=== PATIENT | female | born 1950 | race Hispanic/Latino ===

== ENCOUNTER 2017-02-23 06:12 | Emergency (ER) | payer BC, MEDICARE ==
[2017-02-23 06:18] VITALS: BMI 29.1
[2017-02-23 06:32] VITALS: RESP 19
--- NOTE | 2017-02-23 06:39 | ED PDOC ---
Arrival/HPI - General Chief Complaint: Chest Pain Time Seen by Provider: 02/23/17 06:19 Historian: Patient - History of Present Illness Narrative History of Present Illness (Text): 02/23/17 06:35 Pt is a 66 yo female who for last 2 nights has been awakened from sleep with SSCP.Tonights episode started at 0300 and has been continuous.Described as a heavinessNot associated with cough ,Sob,fever.No posirtional component though hurts to palpate the area.No recent trauma.No accompanying symptoms.Pos risk factors include hypertension,Hyperlipidemia.Pt is not a smoker,no diabetes or FH.Pain is not exertional 02/23/17 06:39 Symptom Course: Unchanged Quality: Pressure Activities at Onset: Rest Past Medical History - Provider Review Nursing Documentation Reviewed: Yes - Travel History Have you recently traveled outside [place] w/in the past 3 mons?: No - Past History Past History: Non-Contributing - Infectious Disease Hx of Infectious Diseases: None - Tetanus Immunization Tetanus Immunization: Unknown - Cardiac Hx Hypertension: Yes Hx Pacemaker: No - Pulmonary Hx Respiratory Disorders: No - Neurological Hx Neurological Disorder: No - HEENT Hx HEENT Disorder: Yes Other/Comment: wears glasses - Renal Hx Kidney Stones: Yes - Endocrine/Metabolic Hx Endocrine Disorders: No Hx Diabetes Mellitus Type 2: Yes (borderline) - Hematological/Oncological Hx Blood Disorders: No - Integumentary Hx Dermatological Disorder: No - Musculoskeletal/Rheumatological Hx Musculoskeletal Disorders: No Hx Falls: No - Gastrointestinal Hx Gastrointestinal Disorders: Yes Hx Diverticulitis: Yes Hx Gastroesophageal Reflux: Yes Other/Comment: Gastritis, irritable Bowel syndrome, Lactose intolerant - Genitourinary/Gynecological Hx Genitourinary Disorders: Yes Other/Comment: kidney stones - Psychiatric Hx Psychophysiologic Disorder: No Hx Emotional Abuse: No Hx Physical Abuse: No Hx Substance Use: No - Surgical History Hx Hysterectomy: Yes Hx Orthopedic Surgery: Yes (left meniscus) Other/Comment: Vericose veins sx/kidney stones - Anesthesia Hx Anesthesia Reactions: No Hx Malignant Hyperthermia: No - Suicidal Assessment Feels Threatened In Home Enviroment: No Family/Social History Family/Social History: No Known Family HX Smoking Status: Never Smoked Hx Alcohol Use: Yes (socially) Frequency of alcohol use: Socially Hx Substance Use: No Hx Substance Use Treatment: No Allergies/Home Meds Allergies/Adverse Reactions: Allergies codeine Allergy (Verified 02/23/17 06:24) ANAPHYLAXIS hyperactivity diazepam [From Valium] Allergy (Verified 02/23/17 06:24) ANAPHYLAXIS hyperactivity diphenhydramine [From Benadryl] Allergy (Verified 02/23/17 06:20) RASH Sulfa (Sulfonamide Antibiotics) Allergy (Verified 02/23/17 06:24) RASH Home Medications: Home Meds Medication Instructions Recorded Confirmed Atorvastatin Calcium [Lipitor] 20 mg PO DAILY 09/11/12 02/23/17 Losartan/Hydrochlorothiazide 1 tab PO DAILY 09/11/12 02/23/17 [Hyzaar 100-12.5 Tablet] Dexlansoprazole [Dexilant] 60 mg PO DAILY 03/29/14 02/23/17 Cholecalciferol [Vitamin D 1000 IU] 1,000 iu PO DAILY 04/02/14 02/23/17 Aspirin [Aspirin Chewable] 81 mg PO DAILY 02/23/17 02/23/17 Conjugated Estrogens [Premarin] 0.3 mg PO DAILY 02/23/17 02/23/17 Review of Systems - Patients Enrolled in [employer] [X]: A conversation was conducted with the primary medical doctor. - Review of Systems Constitutional: Normal Eyes: Normal ENT: Normal Respiratory: Normal Cardiovascular: Normal Gastrointestinal: Normal Genitourinary Female: Normal Physical Exam Vital Signs Pulse Resp BP Pulse Ox 02/23/17 06:28 75 19 149/67 97 Blood Pressure: Normal Pulse: Regular Respiratory Rate: Normal Appearance: Positive for: Well-Appearing Pain Distress: None Mental Status: Positive for: Alert and Oriented X 3 - Systems Exam Pupils: Present: PERRL Conjunctiva: Present: Normal Ears: Present: Normal Neck: Present: Normal Range of Motion Respiratory/Chest: Present: Clear to Auscultation, Good Air Exchange Cardiovascular: Present: Regular Rate and Rhythm, Other (CW is tender to palp, reproduces the sx) Abdomen: Present: Normal Bowel Sounds. No: Tenderness, Distention, Peritoneal Signs Back: Present: Normal Inspection. No: CVA Tenderness Upper Extremity: Present: Normal Inspection. No: Cyanosis, Edema Lower Extremity: Present: Normal Inspection. No: Edema Medical Decision Making ED Course and Treatment: 02/23/17 06:56 Pt with atypical reproducible chest pain which was continuous since 0300.Likely musculoskeletal in origin - RAD Interpretation Radiology Orders: 02/23/17 06:33 CHEST PORTABLE [RAD] Stat - EKG Interpretation EKG Interpretation (Text): 02/23/17 07:01 ekg demonstrates nsr,no acute STTW changes,no ectopy Interpreted by ED Physician: Yes Type: 12 lead EKG Comparison: No previous EKG avail. - Transfer of Care Patient signed out to Dr:: byron Disposition/Present on Arrival - Present on Arrival History of DVT/PE: No History of Uncontrolled Diabetes: No Urinary Catheter: No History of Decub. Ulcer: No History Surgical Site Infection Following: None - Disposition Forms: [employer] (Thai)
[2017-02-23 07:01] LABS: ALB/GLOB RATIO 1.5 (1.1-1.8); ALKALINE PHOSPHATASE 71 U/L (38-126); ALT/SGPT 31 U/L (7-56); AST/SGOT 31 U/L (14-36); BILIRUBIN,TOTAL 0.6 mg/dL (0.2-1.3); BLOOD UREA NITROGEN 19 mg/dL (7-21); CARBON DIOXIDE 26 mmol/L (21-33); CHLORIDE 104 mmol/L (98-107); GFR AFRICAN-AMERICAN > 60; GLUCOSE,RANDOM 187 mg/dL (70-110); MAGNESIUM 1.6 mg/dL (1.7-2.2); POTASSIUM 3.7 mmol/L (3.6-5.0); SODIUM 140 mmol/L (132-148); TOTAL PROTEIN 6.9 g/dL (5.8-8.3)
[2017-02-23 07:08] LABS: BASO # 0.03 K/mm3 (0.0-2.0); BASO % 0.4 % (0.0-3.0); EOS # 0.2 (0.0-0.7); EOS % 3.1 % (1.5-5.0); GRAN # 4.84 (1.4-6.5); GRAN % 68.4 % (50.0-68.0); HEMATOCRIT 36.3 % (36.0-48.0); LYMPH # 1.5 (1.2-3.4); LYMPH % 21.3 % (22.0-35.0); MEAN CELL VOLUME 90.3 fl (80.0-105.0); MEAN CORPUSCULAR HEMOGLOBIN 30.3 pg (25.0-35.0); MEAN CORPUSCULAR HGB CONC 33.6 g/dl (31.0-37.0); MEAN PLATELET VOLUME 9.5 fl (7.0-11.0); MONO # 0.5 (0.1-0.6); MONO % 6.8 % (1.0-6.0); RED CELL DISTRIBUTION WIDTH 12.6 % (11.5-14.5); WHITE BLOOD COUNT 7.1 10^3/ul (4.5-11.0)
[2017-02-23 07:17] LABS: TROPONIN I < 0.01 ng/mL
[2017-02-23 07:22] LABS: PARTIAL THROMBOPLASTIN TIME 25.5 Seconds (25.1-36.5)
--- NOTE | 2017-02-23 07:30 | ED PDOC ---
Physical Exam Vital Signs Reviewed: Yes Vital Signs Temp Pulse Resp BP Pulse Ox 02/23/17 07:30 98.1 F 68 19 131/78 96 02/23/17 06:28 75 19 149/67 97 Medical Decision Making ED Course and Treatment: 02/23/17 07:10 The patient is signed over to me by Dr. Fuchs. EKG: Ordered, reviewed, and independently interpreted the EKG. Rate : 81 BPM Rhythm : NSR Interpretation : T wave flattening, AVF in lead 3, new from prior patial RBBB, incomplete right bundle. Comparison : No new ST/T changes from prior EKG on 04/21/2013. 02/23/17 08:10 Upon reevaluation, the patient states she is feeling better, but still has mild chest discomfort. I will repeat troponin and EKG at 09:30. 02/23/17 10:42 Second troponin is negative we'll recheck in EKG this is negative her leave she is stable for discharge she has had atypical chest pain for several days and is not significantly changed and follow up with Dr. Nunes cardiology for an outpatient stress test, her last was in 2014 Re-evaluation Time: 10:42 - Lab Interpretations Lab Results: 02/23/17 06:30 02/23/17 06:30 Lab Results 02/23/17 09:30: Troponin I < 0.01 02/23/17 08:50: Urine Color Yellow, Urine Appearance Clear, Urine pH 6.0, Ur Specific [place] 1.015, Urine Protein Negative, Urine Glucose (UA) Negative, Urine Ketones Negative, Urine Blood Trace-intact H, Urine Nitrate Negative, Urine Bilirubin Negative, Urine Urobilinogen 0.2, Ur Leukocyte Esterase Negative , Urine RBC 0 - 2, Urine WBC 0 - 2, Ur Epithelial Cells 0 - 2 02/23/17 06:30: Sodium 140, Potassium 3.7, Chloride 104, Carbon Dioxide 26, Anion Gap 14, BUN 19, Creatinine 0.8, Est GFR ( Amer) > 60, Est GFR (Non- Af Amer) > 60, Random Glucose 187 H, Calcium 9.0, Magnesium 1.6 L, Total Bilirubin 0.6, AST 31, ALT 31, Alkaline Phosphatase 71, Troponin I < 0.01, NT- Pro-B Natriuret Pep 56.5, Total Protein 6.9, Albumin 4.1, Globulin 2.8, Albumin/ Globulin Ratio 1.5 02/23/17 06:30: APTT 25.5, D-Dimer, Quantitative 203 02/23/17 06:30: WBC 7.1, RBC 4.02, Hgb 12.2, Hct 36.3, MCV 90.3, MCH 30.3, MCHC 33.6, RDW 12.6, Plt Count 202, MPV 9.5, Gran % 68.4 H, Lymph % (Auto) 21.3 L, [place] % (Auto) 6.8 H, Eos % (Auto) 3.1, Baso % (Auto) 0.4, Gran # 4.84, Lymph # 1.5, [place] # 0.5, Eos # 0.2, Baso # 0.03 I have reviewed the lab results: Yes Interpretation: No sign. chg./baseline - RAD Interpretation Radiology Orders: 02/23/17 06:33 CHEST PORTABLE [RAD] Stat - EKG Interpretation Interpreted by ED Physician: Yes Type: 12 lead EKG - Medication Orders Current Medication Orders: Discontinued Medications Aspirin (Aspirin Chewable) 243 mg PO STAT STA Stop: 02/23/17 07:42 Last Admin: 02/23/17 07:57 Dose: 243 mg Magnesium Sulfate/Dextrose (Magnesium Sulfate 1 Gm/100 Ml D5w) 1 gm in 100 mls @ 100 mls/hr IVPB ONCE ONE Stop: 02/23/17 08:42 Last Admin: 02/23/17 07:57 Dose: 100 mls/hr eMAR Start Stop Document 02/23/17 07:57 [place] (Rec: 02/23/17 07:57 LA [facility] [id number]) Intravenous Solution Start Date 02/23/17 Start Time 07:57 - Scribe Statement The provider has reviewed the documentation as recorded by the Asim Naranjo Provider Scribe Attestation: All medical record entries made by the Scribe were at my direction and personally dictated by me. I have reviewed the chart and agree that the record accurately reflects my personal performance of the history, physical exam, medical decision making, and the department course for this patient. I have also personally directed, reviewed, and agree with the discharge instructions and disposition. Disposition/Present on Arrival - Present on Arrival Any Indicators Present on Arrival: No History of DVT/PE: No History of Uncontrolled Diabetes: Yes Urinary Catheter: No History of Decub. Ulcer: No History Surgical Site Infection Following: None - Disposition Have Diagnosis and Disposition been Completed?: Yes Diagnosis: Chest pain Disposition: HOME/ ROUTINE Disposition Time: 11:00 Patient Plan: Discharge Condition: IMPROVED Discharge Instructions (ExitCare): Chest Pain (ED) Print Language: RWANDAN Additional Instructions: Follow-up with Deonna of cardiology for an outpatient stress test Forms: [employer] (Namibian)
[2017-02-23] MEDS ORDERED: Magnesium Sulfate 1 gm in D5W 1 GM/100 ML BAG IVPB ONE (07:43)
--- NOTE | 2017-02-23 08:55 | RAD ---
HISTORY: Chest pain COMPARISON: 02/23/2015 FINDINGS: LUNGS: No active pulmonary disease. PLEURA: No significant pleural effusion identified, no pneumothorax apparent. CARDIOVASCULAR: Normal. OSSEOUS STRUCTURES: No significant abnormalities. VISUALIZED UPPER ABDOMEN: Normal. OTHER FINDINGS: None. IMPRESSION: No active disease.
[2017-02-23 09:02] LABS: URINE APPEARANCE CLEAR (CLEAR); URINE BILIRUBIN NEGATIVE (NEGATIVE); URINE BLOOD TRACE-INTACT (NEGATIVE); URINE COLOR YELLOW (YELLOW); URINE GLUCOSE (UA) NEGATIVE (NEGATIVE); URINE KETONE NEGATIVE (NEGATIVE); URINE LEUKOCYTE ESTERASE NEGATIVE Leu/uL (NEGATIVE); URINE PROTEIN NEGATIVE mg/dL (<30 mg/dL); URINE UROBILINOGEN 0.2 E.U./dL (<1 E.U./dL)
[2017-02-23 09:05] LABS: URINE EPITHELIAL CELLS 0 - 2 /hpf (0-5); URINE RBC 0 - 2 /hpf (0-2); URINE WBC 0 - 2 /hpf (0-6)
[2017-02-23 11:14] VITALS: BP 145/73; PULSE 63; TEMP 98; O2SAT 97
--- NOTE | 2017-02-23 22:11 | CARD ---
APPROVED REPORT EKG Measurement Heart [id number] <Conclusion> Sinus bradycardia Incomplete right bundle branch block Borderline ECG
--- NOTE | 2017-02-23 22:16 | CARD ---
APPROVED REPORT EKG Measurement Heart [id number] <Conclusion> Normal sinus rhythm Incomplete right bundle branch block Borderline ECG
== END 2017-02-23 11:10 | disposition home or self-care (01) ==
LOC: ED 06:12
DX: R07.9 Chest pain, unspecified (principal)
CPT/HCPCS: 71010; 80053; 81001; 83735; 83880; 84484; 85025; 85378; 85730; 93005; 96374; 99284; J3475

== ENCOUNTER 2017-09-13 07:03 | Day surgery (SDC) | payer MEDICARE ==
[2017-09-01 09:54] VITALS: BMI 28.8
[2017-09-13] MEDS ORDERED: Sodium Chloride 0.9% 1,000 ML IV SCH (07:45)
[2017-09-13] MEDS ORDERED: Propofol 10 mg/ml Inj (20 ML) ONE ×3 (07:56→08:31)
[2017-09-13] MEDS ORDERED: Lidocaine 2% Inj (20ml) ONE (07:57)
[2017-09-13 09:31] VITALS: O2SAT 97
[2017-09-13 10:09] VITALS: BP 154/74; PULSE 62; RESP 18; TEMP 97.8
== END 2017-09-13 10:27 | disposition home or self-care (01) ==
LOC: ENDO 07:03
PROVIDERS: ATTEND Internal Medicine Gastroenterology
DX: K21.0 Gastro-esophageal reflux disease with esophagitis (principal); K25.9 Gastric ulcer, unspecified as acute or chronic, without hemorrhage or perforation; K31.7 Polyp of stomach and duodenum; K29.50 Unspecified chronic gastritis without bleeding
CPT/HCPCS: 43251; 88305; 88342; J2704; J7030; J7040